=== PATIENT | male | born 1980 | race Two or more races ===

== ENCOUNTER 2018-12-31 10:28 | Outpatient (CLI) | payer OTHER | END 2018-12-31 23:59 | disposition home or self-care (01) | LOC: CARD 10:28 | PROVIDERS: ATTEND Family Medicine | DX: I45.9 Conduction disorder, unspecified (principal); R20.0 Anesthesia of skin; J45.909 Unspecified asthma, uncomplicated; Z88.5 Allergy status to narcotic agent | CPT/HCPCS: 95886; 95908 ==